=== PATIENT | male | born 2000 | race African-American/Black ===

== ENCOUNTER 2022-07-01 20:38 | Inpatient (IN) | payer MEDICAID ==
[2022-07-01 21:56] LABS: GLUCOMETER DEV NAME(LOC) POC.BV
[2022-07-01] MEDS ORDERED: LORazepam 2 MG TABLET PO PRN (23:00)
[2022-07-01] MEDS ORDERED: ZOLPIDEM TARTRATE 10 MG TABLET PO PRN (23:00)
[2022-07-01] MEDS ORDERED: HALOPERIDOL 5 MG TABLET PO PRN (23:00)
[2022-07-02 01:42] VITALS: BP 123/76
[2022-07-02] MEDS ORDERED: MAGNESIUM HYDROXIDE SUSPENSION 30 ML UDCUP PO PRN (06:45)
[2022-07-02] MEDS ORDERED: DOCUSATE SODIUM 100 MG CAPSULE PO PRN (06:45)
[2022-07-02] MEDS ORDERED: LOPERAMIDE HCL 2 MG CAPSULE PO PRN (06:45)
[2022-07-02] MEDS ORDERED: ACETAMINOPHEN 325 MG TABLET PO PRN (06:45)
[2022-07-02] MEDS ORDERED: ONDANSETRON HCL 4 MG TABLET PO PRN (06:45)
[2022-07-02] MEDS ORDERED: ALBUTEROL SULFATE HFA 90 MCG/PUFF 8 GM INHALER IH PRN (06:45)
[2022-07-02] MEDS ORDERED: IBUPROFEN 400 MG TABLET PO PRN (06:45)
[2022-07-02] MEDS ORDERED: GuaiFENesin/D-METHORPHAN [SUGAR-FREE] 200-20MG/10 ML SYRUP UDCUP PO PRN (06:45)
[2022-07-02] MEDS ORDERED: CloNIDine HCL 0.1 MG TABLET PO PRN (06:45)
[2022-07-02] MEDS ORDERED: NICOTINE 14 MG/24 HOUR PATCH TD PRN (06:45)
[2022-07-02] MEDS ORDERED: PETROLATUM,WHITE 28 GM JELLY TP PRN (06:45)
[2022-07-02 07:12] LABS: BASOPHILS % (AUTO) 0.4 % (0.0-2.0); HEMATOCRIT 37.1 % (41-53); HEMOGLOBIN 12.3 g/dL (13.5-17.5); LYMPHOCYTES # (AUTO) 2.8 K/uL (1.0-4.8); LYMPHOCYTES % (AUTO) 40.9 % (22.0-44.0); MEAN CORPUSCULAR HEMOGLOBIN 28.8 pg (26.0-34.0); MEAN CORPUSCULAR HGB CONC 33.3 G/dL (31.0-37.0); MEAN CORPUSCULAR VOLUME 87 fL (80-100); MONOCYTES # (AUTO) 0.6 K/uL (0.1-1.0); MONOCYTES % (AUTO) 8.7 % (2.0-9.0); NEUTROPHILS # (AUTO) 3.2 K/uL (1.8-7.7); PLATELET COUNT (AUTO) 203 K/uL (150-450); RED BLOOD CELL COUNT(AUTO) 4.28 MIL/uL (4.50-5.90); RED CELL DISTRIBUTION WIDTH 13.9 % (11.5-14.5)
[2022-07-02 07:39] LABS: ALANINE AMINOTRANSFERASE 21 U/L (12-78); ALBUMIN 2.9 g/dL (3.4-5.0); ALKALINE PHOSPHATASE 43 U/L (46-116); ANION GAP 6 mmol/L (8-16); ASPARTATE AMINOTRANSFERASE 19 U/L (15-37); BILIRUBIN,TOTAL 0.2 mg/dL (0.1-1.0); CALCIUM, TOTAL 8.5 mg/dL (8.8-10.5); CARBON DIOXIDE 25 mmol/L (22-29); CHLORIDE 103 mmol/L (98-107); CHOL/HDL RATIO 4.3 (4.2-7.3); CHOLESTEROL 173 mg/dL (131-200); CREATININE 0.92 mg/dL (0.60-1.30); FREE T4 (FREE THYROXINE) 0.81 ng/dL (0.76-1.46); GLOMERULAR FILTR. RATE CALC > 60 mL/min (>60); GLUCOSE,RANDOM 90 mg/dL (70-110); HDL CHOLESTEROL 40 mg/dL (40-60); LDL CHOL (CALC.) 110 mg/dL (0-130); POTASSIUM 3.8 mmol/L (3.5-5.1); SODIUM SERUM 134 mmol/L (136-145); THYROID STIMULATING HORMONE 0.94 uIU/mL (0.36-3.74); TOTAL PROTEIN, SERUM 6.3 g/dL (6.4-8.2); TRIGLYCERIDES 114 mg/dL (15-150); UREA NITROGEN, BLOOD 16 mg/dL (7-18)
[2022-07-02 07:44] LABS: HEMOGLOBIN A1C 5.8 % (3.8-5.6)
[2022-07-02 09:50] VITALS: BP 114/62
[2022-07-02 13:02] LABS: APPEARANCE,URINE CLEAR (CLEAR); BILIRUBIN,URINE NEGATIVE (NEGATIVE); GLUCOSE, URINE (UA) NEGATIVE (NEGATIVE); KETONES,URINE NEGATIVE (NEGATIVE); LEUKOCYTE ESTERASE ,URINE NEGATIVE (NEGATIVE); NITRATE,URINE NEGATIVE (NEGATIVE); OCCULT BLOOD,URINE NEGATIVE (NEGATIVE); PROTEIN,URINE NEGATIVE (NEGATIVE); UROBILINOGEN,URINE <=1.0 mg/dL (<=1.0)
[2022-07-02] MEDS: RisperiDONE 0.5 MG TABLET PO SCH ×2 (13:04→20:05)
[2022-07-02] MEDS: SERTRALINE HCL 50 MG TABLET PO SCH (13:04)
[2022-07-02 13:13] LABS: AMPHET/METH SCREEN,URINE NEGATIVE (NEGATIVE); BARBITURATE SCREEN, URINE NEGATIVE (NEGATIVE); BENZODIAZEPINES SCREEN,URINE NEGATIVE (NEGATIVE); CANNABINOID SCREEN,URINE POSITIVE (NEGATIVE); COCAINE SCREEN,URINE POSITIVE (NEGATIVE); METHADONE SCREEN, URINE NEGATIVE (NEGATIVE); OPIATE SCREEN,URINE NEGATIVE (NEGATIVE)
[2022-07-02 13:16] LABS: PHENCYCLIDINE SCREEN,URINE NEGATIVE (NEGATIVE)
[2022-07-02] MEDS: MAG HYDROX/AL HYDROX/SIMETH ES 30 ML SUSPENSION UDCUP PO PRN (18:56)
[2022-07-02 20:14] VITALS: BP 105/69
[2022-07-03] MEDS: SERTRALINE HCL 50 MG TABLET PO SCH (08:21)
[2022-07-03] MEDS: RisperiDONE 0.5 MG TABLET PO SCH ×2 (08:21→20:16)
[2022-07-03 09:22] VITALS: BP 126/70
[2022-07-03] MEDS: MAG HYDROX/AL HYDROX/SIMETH ES 30 ML SUSPENSION UDCUP PO PRN (18:34)
[2022-07-03 20:18] VITALS: BP 124/90
[2022-07-03] MEDS ORDERED: OMEPRAZOLE 20 MG CAPSULE PO SCH (21:45)
[2022-07-03] MEDS: OMEPRAZOLE 20 MG CAPSULE PO SCH (22:08)
[2022-07-04 08:33] VITALS: BP 130/79
[2022-07-04] MEDS: OMEPRAZOLE 20 MG CAPSULE PO SCH (09:00)
[2022-07-04] MEDS: SERTRALINE HCL 50 MG TABLET PO SCH (09:00)
[2022-07-04] MEDS: RisperiDONE 0.5 MG TABLET PO SCH (09:00)
== END 2022-07-04 08:50 | disposition home or self-care (01) | DRG 751 ==
LOC: B3A 22:55
PROVIDERS: ADMIT Psychiatry & Neurology Child & Adolescent Psychiatry; ATTEND Psychiatry & Neurology Child & Adolescent Psychiatry
DX: F33.3 Major depressive disorder, recurrent, severe with psychotic symptoms (principal); E87.1 Hypo-osmolality and hyponatremia; R45.851 Suicidal ideations; F10.10 Alcohol abuse, uncomplicated; F41.9 Anxiety disorder, unspecified; Z20.822 Contact with and (suspected) exposure to COVID-19; D64.9 Anemia, unspecified; F19.10 Other psychoactive substance abuse, uncomplicated; Z79.899 Other long term (current) drug therapy; Z71.51 Drug abuse counseling and surveillance of drug abuser
CPT/HCPCS: 80053; 80061; 80307; 81003; 83036; 84439; 84443; 85025